=== PATIENT | male | born 2000 ===

== ENCOUNTER 2023-01-09 16:36 | Inpatient (IN) | payer BC, MEDICAID ==
[2023-01-09] MEDS ORDERED: ACETAMINOPHEN TAB 325 MG TAB PO PRN (18:35)
[2023-01-09] MEDS ORDERED: MAGNESIUM HYDROXIDE 2,400 MG/10 ML CUP PO PRN (18:35)
[2023-01-09] MEDS ORDERED: MAG HYDROX/AL HYDROX/SIMETH 30 ML CUP PO PRN (18:35)
[2023-01-09] MEDS ORDERED: OLANZapine 10 MG VIAL IM PRN (18:36)
[2023-01-09] MEDS ORDERED: OLANZapine 5 MG TAB PO PRN (18:36)
[2023-01-09] MEDS ORDERED: hydrOXYzine HCL 50 MG/ML 1 ML VIAL IM PRN (18:37)
[2023-01-09] MEDS ORDERED: hydrOXYzine pamoate 25 MG CAP PO PRN (18:37)
[2023-01-09] MEDS: NICOTINE 14MG/24HR PATCH TRANSDERM SCH (21:42)
[2023-01-10] MEDS: NICOTINE 14MG/24HR PATCH TRANSDERM SCH (08:45)
[2023-01-10] MEDS: OLANZapine 5 MG TAB PO SCH (08:45)
[2023-01-10] MEDS ORDERED: FLUoxetine HCL 20 MG CAP PO STA (12:59)
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
[2023-01-10] MEDS: NICOTINE GUM (POLACRILEX) 2 MG GUM BUCCAL PRN (19:01)
[2023-01-11] MEDS: FLUoxetine HCL 10 MG CAP PO SCH (08:29)
[2023-01-11] MEDS: OLANZapine 5 MG TAB PO SCH (08:30)
[2023-01-11] MEDS: NICOTINE GUM (POLACRILEX) 2 MG GUM BUCCAL PRN ×3 (10:28→20:47)
--- NOTE | 2023-01-11 12:02 | P.PN ---
Progress Note - Text Progress Note Date: 01/11/23 Interval History: Patient was seen wandering the hallways and was directable and agreeable to speak with chart writer in the office. Currently, the patient reports that he is feeling better. He states that his depressive symptoms appeared to be improving. He is not endorsing any suicidal or homicidal ideation, intention, and/or plan. He is not reporting any auditory or visual hallucinations at this time. He does express some generalized paranoia. He has been adherent with his medication and is not endorsing any significant side effects. He is future and goal oriented. Mental Status Exam: General Appearance: Patient appears to be stated age is alert, directable, and cooperative. Behavior: Patient is calmly seated without any agitated behavior. Speech: Patient's speech is fluent and nonpressured. Mood/Affect: Mood is improving mildly, affect is congruent and constricted. Suicidality/Homicidality: Patient denies having any suicidal or homicidal ideation intent or plan. Perceptions: Patient denies any visual hallucinations and denies any auditory hallucinations Though content/process: Patient endorses generalized paranoia. Otherwise linear and logical in conversation. Memory and concentration: AOX3, grossly intact for the purposes of this session Judgment and insight: Improving mildly Vital Signs Temp 98.3 F 01/11/23 07:02 Pulse 56 L 01/11/23 07:02 Resp 16 01/11/23 07:02 BP 121/66 01/11/23 07:02 Pulse Ox 98 01/11/23 07:02 FiO2 Assessment Major depressive disorder, recurrent, severe Cannabis-induced psychosis, in remission Nicotine dependence Plan: -Patient continues to meet criteria for inpatient psychiatric admission for symptom stabilization and safety. Patient has signed adult voluntary form and medication consent and was placed in patient's chart. The patient did have a very severe suicide attempts by overdose that required ICU treatment and intubation. Prognosis continues to be guarded. He will require further observation. -Medications: Increase Prozac to 30 mg daily for depression -When necessary Zyprexa and Vistaril for agitation/aggression. -SW on board for discharge planning. Encouraged the patient to participate in milieu.
--- NOTE | 2023-01-12 04:10 | P.CONS ---
History of Present Illness - Reason for Consult Consult date: 01/12/23 - History of Present Illness The patient is a 22-year-old male with a PMH of marijuana induced psychosis who was transferred from [facility] where the patient had initially presented after an intentional overdose. The patient states that he had been feeling down about his life which led him to an intentional overdose on Depakote, Xanax, and ibuprofen. Reports feeling significantly better at the time of interview. He does not recall how many tablets he took. He reports occasional marijuana use as well as smoking one pack of cigarettes daily. He denies any additional substance use. He denies any additional complaints. Denies experiencing chest discomfort, shortness of breath, fever, chills, cough, vomiting and diarrhea. Review of systems: Pertinent positives and negatives as discussed in HPI, a complete review of systems was performed and all other systems are negative. Physical examination: General: non toxic, no distress, appears at stated age, normal weight Derm: no unusual rashes/lesions, no unusual ecchymoses, warm, dry Head: atraumatic, normocephalic, symmetric Eyes: EOMI, no lid lag, anicteric sclera ENT: Nose and ears atraumatic, no thrush, no pharyngeal erythema Neck: trachea midline, supple Mouth: no lip lesion, mucus membranes moist Cardiovascular: S1S2 reg, no murmur, no edema Lungs: CTA bilateral, no rhonchi, no rales , no accessory muscle use Abdominal: soft, nontender to palpation, no guarding Ext: no gross muscle atrophy, no contractures, Neuro: No gross focal neuro deficits noted Psych: Alert, oriented, appropriate affect Assessment: Marijuana abuse Tobacco abuse Depression and suicidal ideation Imaging: None performed Data Review: Laboratory evaluation pending Plan: Advised on the importance of cessation of marijuana use Defer management of depression and suicidal ideation to the primary psychiatry service Thank you for allowing us to participate in the care of this patient. We will follow peripherally. Do not hesitate to contact us with questions. Someone can be reached from the [facility] hospitalist group at all hours of the day at [phone]. Past Medical History Past Medical History: No Reported History History of Any Multi-Drug Resistant Organisms: None Reported Past Surgical History: No Surgical Hx Reported Past Anesthesia/Blood Transfusion Reactions: No Reported Reaction Past Psychological History: Bipolar Smoking Status: Current every day smoker - Past Family History Mother Family Medical History: COPD Medications and Allergies Allergies Allergy/AdvReac Type Severity Reaction Status Date / Time haloperidol [From Haldol] AdvReac Unknown Verified 01/09/23 18:35 Physical Exam Vitals: Vital Signs Temp Pulse Resp BP Pulse Ox 01/12/23 00:01 97.9 F 78 17 122/74 99 01/11/23 07:02 98.3 F 56 L 16 121/66 98
[2023-01-12] MEDS: OLANZapine 5 MG TAB PO SCH (08:13)
[2023-01-12] MEDS: FLUoxetine HCL 10 MG CAP PO SCH (08:13)
--- NOTE | 2023-01-12 08:47 | P.PN ---
Subjective Progress Note Date: 01/12/23 Principal diagnosis: Diagnosis major depression recurrent severe Cannabis-induced psychosis in remission Nicotine dependence Patient was seen energetically walking up and down the [place]. He was directable and agreeable to speak with communications writer in the office. Currently, the patient reports that he is feeling better. He states that his depressive symptoms appeared to be improving. He is not endorsing any suicidal or homicidal ideation, intention, and/or plan. He is not reporting any auditory or visual hallucinations at this time. He no longer expresses generalized paranoia. He has been adherent with his medication and is not endorsing any he says only side effect he notices is little hard to go to sleep. He is future and goal oriented. 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 Behavior: Patient is calmly seated without any agitated behavior. Speech: Patient's speech is fluent and nonpressured. Mood/Affect: Mood is improving , affect is congruent with a full range and is mood congruent. Suicidality/Homicidality: Patient denies having any suicidal or homicidal ideation intent or plan. Perceptions: Patient denies any visual hallucinations and denies any auditory hallucinations Though content/process: Otherwise linear and logical in conversation. Memory and concentration: AOX3, grossly intact for the purposes of this session Judgment and insight: Adequate Diagnosis: Major depressive disorder, recurrent, severe Cannabis-induced psychosis, in remission Nicotine dependence Plan: Patient has what seems to be a flight into health he feels that all of his symptoms were secondary to marijuana he is tolerating his medicine well except it seems to energize and keep him from falling asleep well. When add some when necessary trazodone -Patient continues to meet criteria for inpatient psychiatric admission for symptom stabilization and safety. Patient has signed adult voluntary form and medication consent and was placed in patient's chart. The patient did have a very severe suicide attempt by overdose that required ICU treatment and intubation. Prognosis continues to be guarded. He will require further observation. -Medications: Increase Prozac to 30 mg daily for depression and trazodone 100 and now or before. -When necessary Zyprexa and Vistaril for agitation/aggression. -SW on board for discharge planning. Encouraged the patient to participate in milieu. Objective - Vital Signs Vital signs: Vital Signs Temp 97.9 F 01/12/23 00:01 Pulse 78 01/12/23 00:01 Resp 17 01/12/23 00:01 BP 122/74 01/12/23 00:01 Pulse Ox 99 01/12/23 00:01 FiO2
[2023-01-12] MEDS: NICOTINE GUM (POLACRILEX) 2 MG GUM BUCCAL PRN ×2 (08:57→20:56)
[2023-01-12] MEDS: traZODone HCL 100 MG TAB PO PRN (21:51)
[2023-01-13] MEDS: FLUoxetine HCL 10 MG CAP PO SCH (08:21)
[2023-01-13] MEDS: OLANZapine 5 MG TAB PO SCH (08:21)
[2023-01-13] MEDS: NICOTINE GUM (POLACRILEX) 2 MG GUM BUCCAL PRN ×3 (09:01→19:31)
--- NOTE | 2023-01-13 13:39 | P.PN ---
Subjective Progress Note Date: 01/13/23 Principal diagnosis: Diagnosis major depression recurrent severe Cannabis-induced psychosis in remission Nicotine dependence Patient was resting in his room but he was directable and agreeable to speak with promotion writer in the office. Currently, the patient reports that he is feeling better. He states that his depressive symptoms appeared to be cleared. He is not endorsing any suicidal or homicidal ideation, intention, and/or plan. He is not reporting any auditory or visual hallucinations at this time. He no longer expresses generalized paranoia. He has been adherent with his medication and is not endorsing any he says only side effect he notices is little hard to go to sleep. We increased the Prozac this morning he is not complaining any side effects. He is future and goal oriented. 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 Mental Status Exam: He has good energy normal psychomotor activity Good eye contact, alert, good physical energy General Appearance: Patient appears to be stated age is alert, directable, and cooperative. Excellent self care Behavior: Patient is calmly seated without any agitated behavior. Speech: Patient's speech is fluent and nonpressured. Mood/Affect: Mood is improving , affect is congruent with a full range and is mood congruent. Suicidality/Homicidality: Patient denies having any suicidal or homicidal ideation intent or plan. Perceptions: Patient denies any visual hallucinations and denies any auditory hallucinations Though content/process: Otherwise linear and logical in conversation. Memory and concentration: AOX3, grossly intact for the purposes of this session Judgment and insight: Adequate Diagnosis: Major depressive disorder, recurrent, severe Cannabis-induced psychosis, in remission Nicotine dependence Plan: Patient has what seems to be a flight into health he feels that all of his symptoms were secondary to marijuana he is tolerating his medicine well except it seems to energize and keep him from falling asleep well. We added some when necessary trazodone which he tried last night and it worked well. He has continued to feel well and be positive for 2 days. -Patient continues to meet criteria for inpatient psychiatric admission for symptom stabilization and safety. Patient has signed adult voluntary form and medication consent and was placed in patient's chart. The patient did have a very severe suicide attempt by overdose that required ICU treatment and intubation. Prognosis continues to be guarded. He will require further observation. -Medications: Increase Prozac to 30 mg daily for depression and trazodone 100 and now or before. -When necessary Zyprexa and Vistaril for agitation/aggression. -SW on board for discharge planning. Encouraged the patient to participate in milieu. Objective - Vital Signs Vital signs: Vital Signs Temp 97.9 F 01/12/23 00:01 Pulse 78 01/12/23 00:01 Resp 17 01/12/23 00:01 BP 122/74 01/12/23 00:01 Pulse Ox 99 01/12/23 00:01 FiO2 Intake & Output 01/12/23 01/13/23 01/13/23 18:59 06:59 18:59 Weight 78.4 kg
[2023-01-13] MEDS: traZODone HCL 100 MG TAB PO PRN (20:48)
[2023-01-14] MEDS: FLUoxetine HCL 10 MG CAP PO SCH (08:36)
[2023-01-14] MEDS: OLANZapine 5 MG TAB PO SCH (08:37)
[2023-01-14 08:38] VITALS: BP 131/68; PULSE 69; RESP 16; TEMP 98.5
[2023-01-14] MEDS: NICOTINE GUM (POLACRILEX) 2 MG GUM BUCCAL PRN ×2 (10:18→13:34)
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
== END 2023-01-14 16:20 | disposition home or self-care (01) | DRG 917 ==
LOC: 3MHU 20:58
PROVIDERS: ADMIT Psychiatry & Neurology Psychiatry; ATTEND Psychiatry & Neurology Psychiatry
PROC: 0BH17EZ Insertion of Endotracheal Airway into Trachea, Via Natural or Artificial Opening (ICD-10-PCS; principal; 2023-01-09)
DX: T42.4X2A Poisoning by benzodiazepines, intentional self-harm, initial encounter (principal); G21.0 Malignant neuroleptic syndrome; F33.2 Major depressive disorder, recurrent severe without psychotic features; R45.851 Suicidal ideations; T39.1X2A Poisoning by 4-Aminophenol derivatives, intentional self-harm, initial encounter; F20.9 Schizophrenia, unspecified; V89.2XXA Person injured in unspecified motor-vehicle accident, traffic, initial encounter; Y92.410 Unspecified street and highway as the place of occurrence of the external cause; Z79.899 Other long term (current) drug therapy; Z91.51 Personal history of suicidal behavior; F12.159 Cannabis abuse with psychotic disorder, unspecified; T42.6X2A Poisoning by other antiepileptic and sedative-hypnotic drugs, intentional self-harm, initial encounter; G47.00 Insomnia, unspecified; F41.9 Anxiety disorder, unspecified; F17.210 Nicotine dependence, cigarettes, uncomplicated; Z71.51 Drug abuse counseling and surveillance of drug abuser; Z71.6 Tobacco abuse counseling; Z88.8 Allergy status to other drugs, medicaments and biological substances